=== PATIENT | female | born 1950 ===

== ENCOUNTER 2019-02-09 06:31 | Inpatient (IN) ==
[~2019-02-09 06:31] MED LIST: Bacitracin 50,000 UNIT, Polymyxin B Sulfate 500,000 UNIT, Sodium Chloride IRRigation 1,... IR ONE
[2019-02-09] MEDS ORDERED: *HR* Succinylcholine 200 MG/10 ML VIAL IVP ONE (06:38)
[2019-02-09] MEDS ORDERED: Dexamethasone 4 MG/ML VIAL ONE (06:38)
[2019-02-09] MEDS ORDERED: Lidocaine -MPF 4% 5 ML AMPUL ONE (06:38)
[2019-02-09] MEDS ORDERED: Ondansetron 4 MG/2 ML VIAL ONE ×2 (06:38→11:40)
[2019-02-09] MEDS ORDERED: Lidocaine -MPF 2% 2 ML VIAL ONE (06:38)
[2019-02-09] MEDS ORDERED: *HR* Rocuronium Bromide 50 MG/5 ML VIAL ONE (06:38)
[2019-02-09] MEDS ORDERED: *HR* FentaNYL (PF) 100 MCG/2 ML VIAL ONE (06:39)
[2019-02-09] MEDS ORDERED: *HR* Propofol 200 MG/20 ML VIAL IVP ONE ×2 (06:40)
[2019-02-09] MEDS ORDERED: *HR* Remifentanil 1 MG VIAL IVP ONE ×2 (06:50→10:47)
[2019-02-09] MEDS ORDERED: CeFAZolin Syr 2,000MG/20 ML 2,000 MG/20 ML SYRINGE IVPB ONE (06:52)
[2019-02-09] MEDS ORDERED: Famotidine 20 MG/2 ML VIAL IVP ONE (06:56)
[2019-02-09] MEDS ORDERED: Pregabalin 75 MG CAPSULE PO ONE (06:56)
[2019-02-09] MEDS ORDERED: *HR* Methadone 10 MG TABLET PO ONE (06:57)
[2019-02-09] MEDS ORDERED: Acetaminophen IV 1,000 MG/100 ML INFUS..BTL IVPB ONE (06:57)
[2019-02-09] MEDS ORDERED: Ringers Solution, Lactated 1,000 ML IVC SCH (07:00)
--- NOTE | 2019-02-09 07:03 | Anesthesia Evaluation PreOp ---
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) Other Medical History: GERD Anesthesia History: No Prior Anesthetic Complications Alcohol Use: none Drug use: none Medications and Allergies Azithromycin [Azithromycin 6-Tab Pack] 250 mg PO PER PKG DI #6 tab 12/16/17 [Rx] Guaifenesin/Codeine Phosphate [Guaifen-Codeine 100-10 mg/5 ml] 5 ml PO Q6-8H PRN 10 Days #118 ml 12/16/17 [Rx] predniSONE [PredniSONE] 20 mg PO DAILY #13 tablet 12/16/17 [Rx] Promethazine/Dextromethorphan [Promethazine-Dm Solution] 5 ml PO Q4-6H PRN #120 ml 12/19/17 [Rx] Allergy/AdvReac Type Severity Reaction Status Date / Time No Known Allergies Allergy Verified 02/07/19 11:29 - Meds/Allergy Pre-op Review Medications Reviewed: Yes Allergies Reviewed: Yes Beta Blockers on Current Med List: No Anesthesia Results - Labs Laboratory Tests 02/07/19 02/07/19 11:50 11:50 Hgb 12.2 Hct 35.8 Plt Count 178 Sodium 139 Potassium 3.9 BUN 5 L Creatinine 0.72 - Imaging EKG: report reviewed (Sinus Tach) Anesthesia Exam O2 Sat Height 1.68 m Weight 71.668 kg Height: 5'6 Weight: 158 lbs NPO (# of Hours): MN Pain Scale: 0 - HEENT Pupil (Motor): Pupils equal, EOMI Mallampati: III Denture Type: Upper: Complete Oral Opening: Less than or equal to 3 - CHIEF ENGINEER'S HELPER LOC: Oriented CHIEF ENGINEER'S HELPER Motor: Normal RLE, Normal LLE, Normal Face, Deficit RUE (slight weakness), Deficit LUE CHIEF ENGINEER'S HELPER Sensory: Normal: RUE, LUE, RLE, LLE, Face - Cardiac Rhythm: Regular Murmur: None JVD: No Carotid Bruit: No - Pulmonary Breath Sounds: bilateral Clear Respiratory Effort: Symmetrical Anesthesia Assess/Plan ASA Score: 2 Level of consciousness: Cooperative, Oriented Anesthetic Plan: General Autologous Blood: No Monitoring Plan: Standard Monitors Recovery Plan: PACU (Discussed GA, agrees to proceed)
[2019-02-09] MEDS ORDERED: *HR* Midazolam HCl 2 MG/2 ML VIAL ONE (07:28)
--- NOTE | 2019-02-09 08:09 | History & Physical Report ---
Date of Encounter: 02/09/19 Time of Encounter: 08:08 24 Hour HP Update - Instructions Instructions: If the History and Physical is less than 30 days old and was completed prior to A.M. admission and or procedure and has NOT been updated on calendar day of procedure please complete this update prior to performing procedure. - Update Patient reports changes in Medical Condition: No Changes in examination, assessment, or condition: No Changes in Medication: No Preop tests/diagnostics Reviewed: Yes Pre-Op MRSA Screen: Negative Surgery Remains Indicated: Yes Consent for Planned Operative Procedure(s) Verified: Yes - Pre-Operative Checklist Preoperative Checklist Indicated: No Prophylactic Antibiotic Ordered: Yes Home Medications Include Beta Niki: No Beta Niki Taken Today (Day of Surgery): No Beta Niki Taken Yesterday (Day Prior to Surgery): No Is VTE Prophylaxis Indicated?: Yes
[2019-02-09] MEDS ORDERED: *HR* OxyCODONE Immed Rel 5 MG TABLET PO PRN (08:46)
[2019-02-09] MEDS ORDERED: *HR* HYDROmorphone (PF) 1 MG/ML SYRINGE IVP PRN (08:46)
--- NOTE | 2019-02-09 12:01 | Orthopedic Operative Note ---
Date of procedure: 02/09/19 Pre-op diagnosis: Cervical stenosis, cervical myelopathy, retrolisthesis Post-op diagnosis: same Operation/Findings: Corpectomy C5, anterior cervical fusion C4-C6: The patient was brought to the operating room and placed supine on the operating room table. Successful general endotracheal anesthesia intubation was performed. Neurophysiologic monitoring personnel placed leads on the upper and lower extremities as well as the cranium for EMG monitoring purposes. Appropriate baseline potentials were noted by the neurophysiologic monitoring staff. Blackmon catheter was placed prior to positioning. Compression boots and stockings were placed for deep vein thrombosis prophylaxis. Padding was also placed all bony prominences including the ulnar nerve near the medial epicondyles of the elbows were appropriately padded. Mild traction was placed on the bilateral shoulders and taped into place. Preoperative antibiotics were administered. The area from the mandible bilaterally to the upper thoraces was prepped and draped in the usual sterile f ashion. An oblique incision was made at the level of the cricoid cartilage which is approximately 3 cm in length and extended from the midline of the cervical spine laterally towards the sternocleidomastoid muscle on the left. It was 1 cm medial and parallel to the sternocleidomastoid muscle on the left. We then performed standard medial approach to the carotid sheath. Sponges were used to tease the fascial medial to the sternocleidomastoid muscle while carefully controlling and palpating the carotid artery. Using careful dissection we were able to get to the level of the anterior vertebral bodies and longus coli muscles. The spinal needle was placed at the appropriate C5-6 level, and intraoperative radiograph was obtained which was a cervical spine lateral radiograph. The needle and radiograph confirmed we were at the correct C5-6 operative level. We further exposed this level by using Bovie cautery under the medial edge of the longus colli muscles to allow them to be retracted approximately 2 mm laterally on each side. An 11 blade was used to perform anterior discectomy at the appropriate C5-6 level after an initial annulotomy of the anterior longitudinal ligament and annulus was performed. Further disc material was removed with pituitary Rongeurs. Subsequently, Synthes pins were placed at the C5 and C6 vertebral bodies respectively to provide distraction. We then used a Trimline cervical retractor which was placed in both medial and lateral as well as inferior superior direction to allow full visualization of the appropriate C5-6 disc and C5 and C6 vertebral bodies. The Leica microscope was brought to the field and the remainder of the procedure was performed under the guidance of this microscope. Using pituitary rongeurs and small curettes, various micro-instruments, a full discectomy was performed at the appropriate C5-6 level. The posterior longitudinal ligament was encountered and appeared partially calcified. A portion of this ligament was removed. After complete and thorough discectomy and removal of spondylitic material was performed the superior endplate of C6 vertebral body were prepared with a bur until allow bleeding of cancellous bone. We then turned our attention to the C4-5 level where a similar series of procedures was performed including discectomy, removal of spondylitic material, end plate preparation of the inferior endplate of C4.. The area at C4-5 and C5-5-6 was now decompressed. We turned our attention to removing C5 vertebral body bone from the corpectomy portion of the procedure. This anterior corpectomy was performed at C5 using rongeurs and pituitary instruments. We decompressed all the way back to the posterior longitudinal ligament and part of this ligament was removed. Bone obtained from this p rocedure was saved in a separate sterile container for later use. At the end of the corpectomy, the air from the anterior portion of C4 to the superior endplate of C6 was fully decompressed back to the spinal cord and posterior longitudinal ligament. We measured the intervening space between the inferior portion of C4 and the superior portion of C6 with calipers. We selected the appropriate size expandable cage and packed this with bone. We then carefully placed the cage and bone within the intervening space between C4 and C6. When found to be in appropriate position the oxygen equipment aide was removed. The placement was done under direct visualization and with the aid of fluorography. A 40 mm cervical plate was then placed on the anterior aspect of the C4, C5, and C6 vertebral bodies. The plate was placed in the midline position after drilling four 13 mm self tapping screws and inserting them. They were locked in place using standard Venture plate maneuvers. At this point a lateral radiograph of the cervical spine was obtained and showed satisfactory position of the cage, graft, and plate. The wound was copiously irrigated and bleeders encountered were cauterized using Bovie cautery. Platysma was closed with interrupted 2-0 Vicryl sutures. Running 3-0 Monocryl suture was used for skin closure. Sterile dressing was placed over the neck wound. A cervical collar was placed. The patient was transferred to a hospital bed and extubated. The patient was noted to be fully motor and sensory intact in the recovery room at the end of the procedure. The medications. All sponge instrument and needle counts were correct at the end of the procedure. Anesthesia: GETA Surgeon: Luis Miguel Valadez Jr Was there an education assistant present: No Estimated blood loss (cc): 50 Specimen: None Condition: stable Disposition: PACU
--- NOTE | 2019-02-09 13:35 | Anesthesia Evaluation Post Op ---
Date of Encounter: 02/09/19 Time of Encounter: 13:34 - Vital Signs Vital Signs: Selected Entries 02/09/19 13:26 Temperature 97.8 F Pulse Rate 63 Respiratory Rate 12 Blood Pressure 128/78 O2 Sat by Pulse Oximetry 95 - Lungs Lungs: Clear Ascult./Percussion - Airway Airway: Non-obstructed - Cardiovascular Regular Rate - Mental Status Mental Status: Alert & Oriented, Answers Appropriately - Pain Pain Scale: 0 Pain Scale used: Numeric (1 - 10) - Nausea Vomiting Nausea Vomiting: Not Present - Hydration Hydration: Tolerates oral liquids, Has not voided - Discharge PostOp Status: Transfer Patient to floor
[2019-02-09] MEDS ORDERED: *HR* HYDROcodone/Acet 5/325 mg TABLET PO PRN (13:46)
[2019-02-09] MEDS ORDERED: Acetaminophen 325 MG TABLET PO PRN (13:46)
[2019-02-09] MEDS ORDERED: Naloxone 0.4 MG/ML INJ IVP PRN (13:46)
[2019-02-09] MEDS: *HR* OxyCODONE Immed Rel 5 MG TABLET PO PRN ×2 (15:46→20:28)
[2019-02-09] MEDS: Ringers Solution, Lactated 1,000 ML IVC SCH (18:14)
[2019-02-09] MEDS: Ondansetron 4 MG/2 ML VIAL IVP PRN (20:27)
[2019-02-09] MEDS: Melatonin 3 MG TABLET PO SCH (20:28)
[2019-02-09] MEDS: traZODone 50 MG TABLET PO SCH (20:28)
[2019-02-10] MEDS: *HR* OxyCODONE Immed Rel 5 MG TABLET PO PRN ×2 (01:46→16:37)
[2019-02-10] MEDS: Ondansetron 4 MG/2 ML VIAL IVP PRN (04:41)
--- NOTE | 2019-02-10 08:53 | Discharge Summary ---
- NOTES TO OUTPATIENT PROVIDER Notes to Outpatient Provider: Patient developed postop swelling about the neck. Failed MBS x 2. PEG placed with tube feed titration. Encourage close follow up. Repeat MBS ordered to eval swallowing. Orders not resulted at time of discharge: Pending orders 02/10/19 08:01 XR cervical spine 3V [XR] Routine Date of Encounter: 02/16/19 Time of Encounter: 12:15 - Discharge Diagnosis (1) Cervical spinal stenosis Priority: Primary Status: Chronic (2) Retrolisthesis Priority: Primary Status: Chronic (3) Cervical myelopathy Priority: Primary Status: Chronic (4) Status post cervical spinal fusion Priority: Primary Status: Acute (5) Aspiration into airway Priority: Secondary Status: Acute Qualifiers: Encounter type: initial encounter Qualified Code(s): T17.908A - Unspecified foreign body in respiratory tract, part unspecified causing other injury, initial encounter (6) On tube feeding diet Priority: Secondary Status: Acute (7) Status post insertion of percutaneous endoscopic gastrostomy (PEG) tube Priority: Secondary Status: Acute - Hospital Course Hospital course: Ms. Duncan is a 68 year old female Date of procedure: 02/09/19 Pre-op diagnosis: Cervical stenosis, cervical myelopathy, retrolisthesis Post-op diagnosis: same Operation/Findings: Corpectomy C5, anterior cervical fusion C4-C6 Patient developed acute inability to swallow postop day #1 MBS failed x 2 PEG placed on 02/14 Tube feeds started and titrated up to nutrition goal Patient discharging with PEG and tube feeds as directed by nutrition with strict NPO orders Patient to follow up with Dr. Valadez end of this week Patient to have repeat MBS next Thursday stat 02/21 Dr. Valadez aware of patient status during admission Postoperative films reviewed with satisfactory hardware position Titrated from IV to enteral pain medication with patient tolerating well. Patient discharged home with home health and infusion services - Time Spent with Patient Total time spent providing and/or coordinating discharge services: - Discharge Medications Prescriptions: New Lansoprazole [Prevacid] 30 mg GTUBE DAILY 30 Days #30 capsule.[address] Malhotra Immed Rel [Roxicodone 5 MG] 5 mg PO Q6HR PRN 5 Days #20 tablet PRN Reason: Severe Pain Docusate [Colace] 100 mg GTUBE BID 7 Days #140 mls Lactose-Reduced Food/Fiber [Jevity 1.5 Celso Liquid] 1 can PO QID #48 can Continue Quetiapine Fumarate [Seroquel] 25 mg PO DAILY PARoxetine HCl [Paroxetine HCl] 20 mg PO DAILY Melatonin 5 mg PO HS Atorvastatin [Lipitor] 40 mg PO HS Donepezil [Aricept] 5 mg PO HS Cyclobenzaprine [Flexeril] 10 mg PO TID PRN PRN Reason: Muscle Spasm Trazodone HCl 100 mg PO HS Discontinued Pantoprazole Sodium [Protonix] 40 mg PO DAILY Home Medications: Atorvastatin [Lipitor] 40 mg PO HS 02/09/19 [History] Cyclobenzaprine [Flexeril] 10 mg PO TID PRN 02/09/19 [History] Donepezil [Aricept] 5 mg PO HS 02/09/19 [History] Melatonin 5 mg PO HS 02/09/19 [History] PARoxetine HCl [Paroxetine HCl] 20 mg PO DAILY 02/09/19 [History] Quetiapine Fumarate [Seroquel] 25 mg PO DAILY 02/09/19 [History] Trazodone HCl 100 mg PO HS 02/09/19 [History] Docusate [Colace] 100 mg GTUBE BID 7 Days #140 mls 02/16/19 [Rx] Lactose-Reduced Food/Fiber [Jevity 1.5 Celso Liquid] 1 can PO QID #48 can 02/16/19 [Rx] Lansoprazole [Prevacid] 30 mg GTUBE DAILY 30 Days #30 capsule. 02/16/19 [Rx] OxyCODONE Immed Rel [Roxicodone 5 MG] 5 mg PO Q6HR PRN 5 Days #20 tablet 02/16/19 [Rx] Allergies/Adverse Reactions: Allergy/AdvReac Type Severity Reaction Status Date / Time No Known Allergies Allergy Verified 02/09/19 07:21 Date of admission: 02/09/19 13:37 Primary care physician: Dakota Ayoub MD Consults: 02/09/19 13:46 Consult to Occupational Therapy [CONS] Routine Comment: Evaluate, develop and implement POC Reason for Consult: Postoperative rehabilitation Does patient have active BEDREST order?: No Is patient medically & hemodynamically stable?: Yes Patient assessed for mobility or mobilized this visit?: No Consult to Physical Therapy [CONS] Routine Comment: Evaluate, develop and implement POC Reason for Consult: Postoperative rehabilitation Does patient have active BEDREST order?: No Is patient medically & hemodynamically stable?: Yes Patient assessed for mobility or mobilized this visit?: No Consult to Spine Navigator [CONS] [CONS] Routine 02/09/19 16:34 Consult to Masticator [CONS] Routine Reason for SW Consult: financial concerns, lack of resources at home, dental issues Discharging clinician: Luis Miguel Valadez Jr Anticipated date of discharge: 02/16/19 - VTE Documentation of Mechanical Device: Graduated compression elastic hosiery - Impressions ITS Impressions Cervical Spine X-Ray 02/09/19 08:45 IMPRESSION: Fluoroscopy was utilized for the purposes of cervical fusion. D/ / 02/09/2019 12:23:10 Tom Myrick MD / david Interpreting Provider: Tom Myrick MD Fluoroscopy 02/09/19 08:45 IMPRESSION: Fluoroscopy was utilized for the purposes of cervical fusion. D/ / 02/09/2019 12:23:10 Tom Myrick MD / david Interpreting Provider: Tom Myrick MD - Patient Status Disposition: Home Health Service Condition: Fair Functional capacity at discharge: uses cane/walker Overall status at discharge: patient is progressing back to baseline - Discharge Instructions Follow Up With: Marylin Ledesma PAC [Physician [employer]] - 02/22/19 1:15 pm Luis Miguel Valadez Jr, MD [Partnered Physician] - 05/12/19 11:45 am Dakota Ayoub MD [Primary Care Provider] - - Diet and Activity Activity: as per physical therapy Diet: other (PEG tube feeds as per nutrition orders)
[2019-02-10] MEDS: *HR* Promethazine 25 MG/ML VIAL IVP PRN (09:08)
--- NOTE | 2019-02-10 13:39 | Orthopedics Progress Note ---
Date of Encounter: 02/10/19 Time of Encounter: 08:45 - Assessment and Plan (1) Cervical spinal stenosis Current Visit: Yes Status: Chronic (2) Retrolisthesis Current Visit: Yes Status: Chronic (3) Cervical myelopathy Current Visit: Yes Status: Chronic (4) Status post cervical spinal fusion Current Visit: Yes Status: Acute Subjective Principal diagnosis: s/p cervical fusion Interval history: Date of procedure: 02/09/19 Pre-op diagnosis: Cervical stenosis, cervical myelopathy, retrolisthesis Post-op diagnosis: same Operation/Findings: Corpectomy C5, anterior cervical fusion C4-C6 The patient is c/o difficulty with swallowing. Vitals reviewed. Dressing is clean dry and intact. C collar in room. Neurovascularly intact with regard to bilateral upper and lower extremities. Fires all upper and lower extremity motor groups. Assessment :stable postop Plan mobilize ,continue analgesics, discharge planning - monitor swallowing, if worsening, will order MBS. Objective Vital signs: Vital Signs Temp Pulse Resp BP Pulse Ox 02/10/19 12:40 98.1 F 58 18 124/67 02/10/19 08:15 97.5 F L 67 132/77 02/10/19 06:57 97.9 F 63 15 129/76 97 02/10/19 04:25 97.7 F 63 17 118/73 96 02/09/19 22:50 97.6 F 53 17 122/80 97 02/09/19 21:24 98.5 F 67 126/75 97 02/09/19 18:46 97.9 F 73 16 108/67 95 02/09/19 16:45 97.5 F L 60 14 127/79 94 02/09/19 16:01 97.5 F L 68 16 123/70 95 02/09/19 15:35 97.5 F L 72 16 123/70 96 02/09/19 14:53 97.9 F 89 15 121/73 96 02/09/19 14:16 97.6 F 74 15 132/75 93 02/09/19 13:47 97.5 F L 75 16 146/79 94 Intake and Output 02/09/19 02/10/19 02/10/19 23:59 07:59 15:59 Intake Total 700 / 700 300 / 300 200 / 200 Output Total 1974 800 / 800 Balance -1275 / -1275 -500 / -500 200 / 200 Intake: IV Fluids 100 / 100 Ancef 2,000 MG In 0.9 % Sodium 100 / 100 Chloride 100 ML @ 200 mls/hr IVPB Q8HR SHAILA Rx#:[id number] Oral 600 / 600 300 / 300 200 / 200 Output: Catheter 1974 800 / 800 Other: Meal Dinner Breakfast Percent of Meal Consumed 100% 5% Weight 71.7 kg Patient Weight 02/10/19 23:59 Weight 71.7 kg - Labs CBC & BMP: 02/11/19 18:00 Consult Discharge Plan - Plan Referrals: Anitra,Dakota Valencia MD [Primary Care Provider] - Prescriptions: RX: OxyCODONE Immed Rel [Roxicodone 5 MG] 5 mg PO Q6HR PRN 5 Days #20 tablet PRN Reason: Severe Pain RX: Docusate Sodium [Colace] 100 mg PO BID 5 Days #10 capsule
[2019-02-10] MEDS ORDERED: E-Z-HD (BARIUM SULF) SUSPENSION PO ONE (15:51)
[2019-02-10] MEDS ORDERED: E-Z-PAQUE (BARIUM SULF) SUSP 1 BOTTLE PO ONE (15:51)
[2019-02-10] MEDS: Melatonin 3 MG TABLET PO SCH (20:27)
[2019-02-10] MEDS: traZODone 50 MG TABLET PO SCH (20:27)
[2019-02-11] MEDS: *HR* OxyCODONE Immed Rel 5 MG TABLET PO PRN (04:36)
[2019-02-11] MEDS: OXYCODONE Oral CONC 10 MG/0.5 ML ORAL.SYG SL PRN (13:01)
[2019-02-11] MEDS: D5% in 0.45% NACL 1,000 ML IVC SCH (13:01)
[2019-02-11] MEDS ORDERED: *HR* LORazepam Oral Conc 2 MG/ML SL PRN (14:40)
--- NOTE | 2019-02-11 17:34 | Orthopedics Progress Note ---
Addendum entered and electronically signed by NITESH Keane 02/11/19 17:37: Late entry from 1500 s/w speech therapy re: MBS and reeval from this morning - patient recommended to be NPO except ice chips and no meds PO. Oxycodone changed to SL version. S/w pharmacy re: alternate routes for maintenance meds - orders placed for alternate admin. Patient c/o worsening cough this afternoon - chest xray and cervical xray ordered. Aspiration noted - will consider starting prophylactic abx for aspiration pneumonia since confirmed presence in the lung. Patient's situation discussed at length with Dr. Valadez Original Note: Date of Encounter: 02/11/19 Time of Encounter: 08:30 - Assessment and Plan (1) Cervical spinal stenosis Current Visit: Yes Status: Chronic (2) Retrolisthesis Current Visit: Yes Status: Chronic (3) Cervical myelopathy Current Visit: Yes Status: Chronic (4) Status post cervical spinal fusion Current Visit: Yes Status: Acute Subjective Principal diagnosis: s/p cervical fusion Interval history: Date of procedure: 02/09/19 Pre-op diagnosis: Cervical stenosis, cervical myelopathy, retrolisthesis Post-op diagnosis: same Operation/Findings: Corpectomy C5, anterior cervical fusion C4-C6 The patient is c/o difficulty swallowing. Vital signs reviewed. Dressing is clean dry and intact. Swelling noted to neck. Brace in place. Steri strips in place. Neurovascularly intact with regard to bilateral lower extremities. Fires all upper and lower extremity motor groups. Assessment : + [facility] [place] Speech therapy report reviewed. Plan mobilize ,continue analgesics, discharge planning - awaiting further d iscussion with speech therapy Objective Vital signs: Vital Signs Temp Pulse Resp BP Pulse Ox 02/11/19 15:21 99.5 F 70 16 125/71 92 02/11/19 11:43 99.0 F 73 16 115/69 93 02/11/19 06:28 99.3 F 75 15 131/73 92 02/11/19 04:18 98.8 F 75 15 135/72 93 02/10/19 23:02 99.0 F 73 15 106/66 92 02/10/19 18:49 98.2 F 60 17 146/79 97 Intake and Output 02/11/19 02/11/19 02/11/19 07:59 15:59 23:59 Other: # Voids 1 1 Weight 71.8 kg Patient Weight 02/11/19 23:59 Weight 71.8 kg Consult Discharge Plan - Plan Referrals: Dakota Ayoub MD [Primary Care Provider] - Prescriptions: OxyCODONE Immed Rel [Roxicodone 5 MG] 5 mg PO Q6HR PRN 5 Days #20 tablet PRN Reason: Severe Pain Docusate Sodium [Colace] 100 mg PO BID 5 Days #10 capsule
[2019-02-11 18:07] LABS: Basophils % 0.3 %; Eosinophils # 0.1 K/mcL (0.0-0.6); Eosinophils % 1.7 %; Hematocrit 30.5 % (35.3-44.9); Immature Granulocytes % 0.3 % (0-4); Lymphocytes # 1.7 K/mcL (0.6-4.6); Lymphocytes % 26.6 %; Mean Corpuscular HGB Conc 34.1 g/dL (31.6-35.5); Mean Corpuscular Hemoglobin 28.6 pg (28.0-33.3); Mean Corpuscular Volume 83.8 fL (83.0-100.0); Mean Platelet Volume 10.5 fL (9.4-12.4); Monocytes # 0.5 K/mcL (0.0-1.3); Monocytes % 6.9 %; Neutrophils # 4.2 K/mcL (1.6-8.9); Platelet Count 158 K/mcL (140-400); Red Blood Count 3.64 M/mcL (3.82-4.97); Red Cell Distribution Width 13.2 % (11.5-14.5); Segmented Neutrophils % 64.2 %
[2019-02-11 18:08] LABS: Hemoglobin 10.4 g/dL (11.5-15.4)
[2019-02-11 18:24] LABS: BUN/Creatinine Ratio 9 (6-26); Blood Urea Nitrogen 5 mg/dL (8-23); Calcium 8.5 mg/dL (8.6-10.3); Carbon Dioxide 32 mEq/L (23-29); Chloride 91 mEq/L (98-107); Glucose 128 mg/dL (70-105); Osmolality,Calculated 265 (280-300); Potassium 3.4 mEq/L (3.5-5.1); Sodium 128 mEq/L (136-145); eGFR For Non-African Americans > 60 (> 60)
[2019-02-11] MEDS: traZODone 50 MG TABLET PO SCH (19:01)
[2019-02-11] MEDS: Melatonin 3 MG TABLET PO SCH (19:01)
[2019-02-12] MEDS: Ringers Solution, Lactated 1,000 ML IVC SCH ×4 (00:53→23:44)
[2019-02-12] MEDS: D5% in 0.45% NACL 1,000 ML IVC SCH ×2 (03:40→17:16)
[2019-02-12] MEDS: OXYCODONE Oral CONC 10 MG/0.5 ML ORAL.SYG SL PRN ×2 (03:41→16:50)
[2019-02-12] MEDS: Ondansetron 4 MG/2 ML VIAL IVP PRN (07:55)
[2019-02-12] MEDS: Melatonin 3 MG TABLET PO SCH (23:44)
[2019-02-12] MEDS: traZODone 50 MG TABLET PO SCH (23:44)
[2019-02-13] MEDS: OXYCODONE Oral CONC 10 MG/0.5 ML ORAL.SYG SL PRN ×2 (04:04→15:20)
[2019-02-13] MEDS: D5% in 0.45% NACL 1,000 ML IVC SCH ×2 (07:39→21:03)
[2019-02-13] MEDS: Melatonin 3 MG TABLET PO SCH (20:30)
[2019-02-13] MEDS: traZODone 50 MG TABLET PO SCH (20:30)
--- NOTE | 2019-02-13 23:09 | Spine Progress Note ---
Date of Encounter: 02/12/19 Time of Encounter: 09:00 Subjective Principal diagnosis: s/p cervical fusion Interval history: Patient was some difficulty swallowing. Has some mild swelling. She has swallow evaluation and they have suggested to make the patient nothing by mouth for now. She has no upper extremity complaints. She has some neck soreness. Afebrile vital signs stable. She is neurovascularly intact with regard to bilateral upper extremities. Objective Vital signs: Vital Signs Temp Pulse Resp BP Pulse Ox 02/13/19 22:45 98.5 F 70 17 135/81 97 02/13/19 16:58 98.9 F 76 17 140/99 97 02/13/19 12:08 98.7 F 76 16 137/80 94 02/13/19 07:38 98.8 F 86 16 127/72 93 02/13/19 03:24 98.6 F 82 14 126/79 97 Intake and Output 02/13/19 02/13/19 02/13/19 07:59 15:59 23:59 Intake Total 0 / 0 0 / 0 1000 / 1000 Output Total 0 / 0 Balance 0 / 0 0 / 0 1000 / 1000 Intake: IV Fluids 1000 / 1000 D5% And 0.45% Nacl 1000 Ml Bag 1000 / 1000 1,000 ML @ 75 mls/hr IVC . [id number] SHAILA Rx#:[id number] Oral 0 / 0 0 / 0 Output: Urine 0 / 0 Other: Meal NPO # Voids 1 Weight 73.9 kg Blood Glucose* 121 120 Patient Weight 02/13/19 23:59 Weight 73.9 kg - Labs CBC & BMP: 02/11/19 18:00 02/11/19 18:00 Labs: Abnormal lab results RBC 3.64 M/mcL (3.82-4.97) L 02/11/19 18:00 Hgb 10.4 g/dL (11.5-15.4) L D 02/11/19 18:00 Hct 30.5 % (35.3-44.9) L 02/11/19 18:00 Sodium 128 mEq/L (136-145) L 02/11/19 18:00 Potassium 3.4 mEq/L (3.5-5.1) L 02/11/19 18:00 Chloride 91 mEq/L (98-107) L 02/11/19 18:00 Carbon Dioxide 32 mEq/L (23-29) H 02/11/19 18:00 BUN 5 mg/dL (8-23) L 02/11/19 18:00 Creatinine 0.57 mg/dL (0.60-1.20) L 02/11/19 18:00 Glucose 128 mg/dL (70-105) H 02/11/19 18:00 POC Glucose 120 mg/dL (70-99) H 02/13/19 11:50 Calculated Osmolality 265 (280-300) L 02/11/19 18:00 Calcium 8.5 mg/dL (8.6-10.3) L 02/11/19 18:00 Consult Discharge Plan - Plan Referrals: Dakota Ayoub MD [Primary Care Provider] - Prescriptions: OxyCODONE Immed Rel [Roxicodone 5 MG] 5 mg PO Q6HR PRN 5 Days #20 tablet PRN Reason: Severe Pain Docusate Sodium [Colace] 100 mg PO BID 5 Days #10 capsule
--- NOTE | 2019-02-13 23:10 | Spine Progress Note ---
Date of Encounter: 02/13/19 Time of Encounter: 23:09 Subjective Principal diagnosis: s/p cervical fusion Interval history: Patient was some difficulty swallowing. She is currently nothing by mouth. She states swelling in neck has improved. We plan repeat swallow evaluation tomorrow. She has no upper extremity complaints. She has some neck soreness. Afebrile vital signs stable. She is neurovascularly intact with regard to bilateral upper extremities. She has a well approximated incision with mild soft tissue swelling anterior and neck. Objective Vital signs: Vital Signs Temp Pulse Resp BP Pulse Ox 02/13/19 22:45 98.5 F 70 17 135/81 97 02/13/19 16:58 98.9 F 76 17 140/99 97 02/13/19 12:08 98.7 F 76 16 137/80 94 02/13/19 07:38 98.8 F 86 16 127/72 93 02/13/19 03:24 98.6 F 82 14 126/79 97 Intake and Output 02/13/19 02/13/19 02/13/19 07:59 15:59 23:59 Intake Total 0 / 0 0 / 0 1000 / 1000 Output Total 0 / 0 Balance 0 / 0 0 / 0 1000 / 1000 Intake: IV Fluids 1000 / 1000 D5% And 0.45% Nacl 1000 Ml Bag 1000 / 1000 1,000 ML @ 75 mls/hr IVC . [id number] SHAILA Rx#:[id number] Oral 0 / 0 0 / 0 Output: Urine 0 / 0 Other: Meal NPO # Voids 1 Weight 73.9 kg Blood Glucose* 121 120 Patient Weight 02/13/19 23:59 Weight 73.9 kg - Labs CBC & BMP: 02/11/19 18:00 02/11/19 18:00 Labs: Abnormal lab results RBC 3.64 M/mcL (3.82-4.97) L 02/11/19 18:00 Hgb 10.4 g/dL (11.5-15.4) L D 02/11/19 18:00 Hct 30.5 % (35.3-44.9) L 02/11/19 18:00 Sodium 128 mEq/L (136-145) L 02/11/19 18:00 Potassium 3.4 mEq/L (3.5-5.1) L 02/11/19 18:00 Chloride 91 mEq/L (98-107) L 02/11/19 18:00 Carbon Dioxide 32 mEq/L (23-29) H 02/11/19 18:00 BUN 5 mg/dL (8-23) L 02/11/19 18:00 Creatinine 0.57 mg/dL (0.60-1.20) L 02/11/19 18:00 Glucose 128 mg/dL (70-105) H 02/11/19 18:00 POC Glucose 120 mg/dL (70-99) H 02/13/19 11:50 Calculated Osmolality 265 (280-300) L 02/11/19 18:00 Calcium 8.5 mg/dL (8.6-10.3) L 02/11/19 18:00 Consult Discharge Plan - Plan Referrals: Dakota Ayoub MD [Primary Care Provider] - Prescriptions: OxyCODONE Immed Rel [Roxicodone 5 MG] 5 mg PO Q6HR PRN 5 Days #20 tablet PRN Reason: Severe Pain Docusate Sodium [Colace] 100 mg PO BID 5 Days #10 capsule
[2019-02-14] MEDS: OXYCODONE Oral CONC 10 MG/0.5 ML ORAL.SYG SL PRN (00:49)
[2019-02-14] MEDS ORDERED: E-Z-PAQUE (BARIUM SULF) SUSP 1 BOTTLE PO ONE (08:23)
[2019-02-14] MEDS ORDERED: E-Z-HD (BARIUM SULF) SUSPENSION PO ONE (08:23)
--- NOTE | 2019-02-14 10:57 | AcuteCare Surgery Consult Note ---
Date of Encounter: 02/14/19 Time of Encounter: 10:50 Assessment and Plan (1) Aspiration into airway Current Visit: Yes Status: Acute The patient is experiencing aspiration with swallowing liquids. This is resulting in choking and coughing as well as inadequate fluid and nutritional intake to maintain hydration and nutritional status. Percutaneous endoscopic gastrostomy tube is recommended Qualifiers: Encounter type: initial encounter Qualified Code(s): T17.908A - Unspecified foreign body in respiratory tract, part unspecified causing other injury, initial encounter History of Present Illness Consult date: 02/14/19 Reason for consult: other (Dysphagia) History of present illness: The patient recently underwent anterior cervical fusion with plate. During the postoperative period she developed progressive dysphagia. The deal esophagram demonstrated delayed swallowing as well as upper esophageal sphincter spasm and aspiration. The patient has not been able to swallow adequate fluids to m aintain hydration or nutrition she now presents for percutaneous endoscopic gastrostomy tube. I discussed risks and benefits of percutaneous endoscopic gastrostomy tube. She understands this and wished to proceed. We will place the percutaneous endoscopic gastrostomy tube later today. It is noted that she has previously had Coleman fundoplication performed at [facility]. Past Med Surg Social Fam HX - Past Medical History Medical history: GERD, hyperlipidemia Additional medical history: cervical stenosis of spinal canal. cervical myelopathy. cervical radiculopathy Psychiatric history: anxiety, depression - Past Surgical History Surgical History: orthopedic, other, other (Laparoscopic hiatal hernia repair and Coleman fundoplication) Additional surgical history: neck surgery, - Social History Smoking Status: Never smoker Smokeless Tobacco Status: No Alcohol use: none Drug use: none - Family History Mother Hx Family Cardiac Disorders: Yes Medications and Allergies Atorvastatin [Lipitor] 40 mg PO HS 02/09/19 [History] Cyclobenzaprine [Flexeril] 10 mg PO TID PRN 02/09/19 [History] Donepezil [Aricept] 5 mg PO HS 02/09/19 [History] Melatonin 5 mg PO HS 02/09/19 [History] PARoxetine HCl [Paroxetine HCl] 20 mg PO DAILY 02/09/19 [History] Pantoprazole Sodium [Protonix] 40 mg PO DAILY 02/09/19 [History] Quetiapine Fumarate [Seroquel] 25 mg PO DAILY 02/09/19 [History] Trazodone HCl 100 mg PO HS 02/09/19 [History] Docusate Sodium [Colace] 100 mg PO BID 5 Days #10 capsule 02/11/19 [Rx] OxyCODONE Immed Rel [Roxicodone 5 MG] 5 mg PO Q6HR PRN 5 Days #20 tablet 02/11/19 [Rx] Allergy/AdvReac Type Severity Reaction Status Date / Time No Known Allergies Allergy Verified 02/09/19 07:21 Review of Systems All systems PM: The remainder of the systems were reviewed and are negative General Surgery Exam Initial Vital Signs Temp Pulse Resp BP Pulse Ox 98.0 F 66 18 122/71 95 02/09/19 07:08 02/09/19 07:08 02/09/19 07:08 02/09/19 07:08 02/09/19 07:08 - General physical appearance well developed, well nourished, no distress - Neck other (The patient has a fresh surgical incision on the anterior aspect of the left neck. She is in a neck brace.) - Respiratory normal expansion, normal respiratory effort, clear to percussion, clear to auscultation - Cardiovascular Cardiovascular exam: Present: RRR, no murmurs/rubs/gallops - Abdomen Abdomen general surgery: Present: bowel sounds present, soft, non tender - Integumentary Integumentary general surgery: Present: warm and dry, no abnormal pigmentation - Neurologic Present: CN 2-12 grossly intact, normal coordination, normal sensation - Psychiatric Psychiatric general surgery: Present: appropriate, oriented to person, oriented to place, oriented to time, speech is normal, memory intact Exam Initial Vital Signs Temp Pulse Resp BP Pulse Ox 98.0 F 66 18 122/71 95 02/09/19 07:08 02/09/19 07:08 02/09/19 07:08 02/09/19 07:08 02/09/19 07:08 Results - Labs 02/11/19 18:00 02/11/19 18:00 Abnormal lab results RBC 3.64 M/mcL (3.82-4.97) L 02/11/19 18:00 Hgb 10.4 g/dL (11.5-15.4) L D 02/11/19 18:00 Hct 30.5 % (35.3-44.9) L 02/11/19 18:00 Sodium 128 mEq/L (136-145) L 02/11/19 18:00 Potassium 3.4 mEq/L (3.5-5.1) L 02/11/19 18:00 Chloride 91 mEq/L (98-107) L 02/11/19 18:00 Carbon Dioxide 32 mEq/L (23-29) H 02/11/19 18:00 BUN 5 mg/dL (8-23) L 02/11/19 18:00 Creatinine 0.57 mg/dL (0.60-1.20) L 02/11/19 18:00 Glucose 128 mg/dL (70-105) H 02/11/19 18:00 POC Glucose 124 mg/dL (70-99) H 02/14/19 06:29 Calculated Osmolality 265 (280-300) L 02/11/19 18:00 Calcium 8.5 mg/dL (8.6-10.3) L 02/11/19 18:00 All other labs normal. - Imaging Additional studies: I personally reviewed the video esophagram. There is evidence of aspiration. There appears to be spasm of the upper esophageal sphincter. Consult Discharge Plan - Plan Referrals: Dakota Ayoub MD [Primary Care Provider] - Prescriptions: OxyCODONE Immed Rel [Roxicodone 5 MG] 5 mg PO Q6HR PRN 5 Days #20 tablet PRN Reason: Severe Pain Docusate Sodium [Colace] 100 mg PO BID 5 Days #10 capsule
[2019-02-14] MEDS: Ondansetron 4 MG/2 ML VIAL IVP PRN (11:09)
[2019-02-14] MEDS: *HR* Promethazine 25 MG/ML VIAL IVP PRN (14:57)
[2019-02-14] MEDS: D5% in 0.45% NACL 1,000 ML IVC SCH (15:00)
[2019-02-14] MEDS ORDERED: CeFAZolin Syr 2,000MG/20 ML 2,000 MG/20 ML SYRINGE IVPB ONE ×2 (16:49→17:20)
[2019-02-14] MEDS ORDERED: Propofol 500 MG/50 ML INFUS..BTL ONE (16:58)
[2019-02-14] MEDS ORDERED: *HR* FentaNYL (PF) 100 MCG/2 ML VIAL ONE (16:58)
[2019-02-14] MEDS ORDERED: Lidocaine -MPF 2% 2 ML VIAL ONE (17:03)
--- NOTE | 2019-02-14 17:15 | Anesthesia Evaluation PreOp ---
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, Swallowing problems post ACFD) Other Medical History: Denies Any Significant HX Anesthesia History: No Prior Anesthetic Complications : No Alcohol Use: none Drug use: none Medications and Allergies Atorvastatin [Lipitor] 40 mg PO HS 02/09/19 [History] Cyclobenzaprine [Flexeril] 10 mg PO TID PRN 02/09/19 [History] Donepezil [Aricept] 5 mg PO HS 02/09/19 [History] Melatonin 5 mg PO HS 02/09/19 [History] PARoxetine HCl [Paroxetine HCl] 20 mg PO DAILY 02/09/19 [History] Pantoprazole Sodium [Protonix] 40 mg PO DAILY 02/09/19 [History] Quetiapine Fumarate [Seroquel] 25 mg PO DAILY 02/09/19 [History] Trazodone HCl 100 mg PO HS 02/09/19 [History] Docusate Sodium [Colace] 100 mg PO BID 5 Days #10 capsule 02/11/19 [Rx] OxyCODONE Immed Rel [Roxicodone 5 MG] 5 mg PO Q6HR PRN 5 Days #20 tablet 02/11/19 [Rx] Allergy/AdvReac Type Severity Reaction Status Date / Time No Known Allergies Allergy Verified 02/09/19 07:21 - Meds/Allergy Pre-op Review Medications Reviewed: Yes Allergies Reviewed: Yes Beta Blockers on Current Med List: No Anesthesia Results - Labs 02/11/19 18:00 02/11/19 18:00 - Imaging EKG: report reviewed (ST) Anesthesia Exam Vital Signs/O2 Sat/Glucose, Most Current Temp Pulse Resp BP Pulse Ox 02/14/19 16:31 98.5 F 76 14 145/85 98 Height: 5'6 Weight: 162 lbs NPO (# of Hours): MN Pain Scale: 0 - HEENT Pupil (Motor): Pupils equal, EOMI Mallampati: III Teeth: Edentulous Oral Opening: Less than or equal to 3 - AUTOMATION AND CONTROLS SUPERVISOR LOC: Oriented AUTOMATION [employer] CONTROLS SUPERVISOR Motor: Normal RUE, Normal LUE, Normal RLE, Normal LLE, Deficit Face (swallowing difficulty post op) AUT[employer]ATION [employer] SUPERVISOR Sensory: Normal: RUE, LUE, RLE, LLE, Face - Cardiac Rhythm: Regular Murmur: None JVD: No Carotid Bruit: No - Pulmonary Breath Sounds: bilateral Clear Respiratory Effort: Symmetrical Anesthesia Assess/Plan ASA Score: 2 Level of consciousness: Cooperative, Oriented Anesthetic Plan: MAC Autologous Blood: No Monitoring Plan: Standard Monitors Recovery Plan: PACU (Discussed MAC, possible GA, agrees to proceed)
--- NOTE | 2019-02-14 17:45 | Operative Note ---
Date of procedure: 02/14/19 Pre-op diagnosis: Dysphagia and aspiration Post-op diagnosis: same Implants: Percutaneous endoscopic gastrostomy tube placement Anesthesia: MAC Surgeon: Gato Lloyd Was there an marketing administrative assistant present: No Estimated blood loss (cc): 5 Specimen: None Condition: stable Disposition: PACU Procedure in Detail: The documentation of the PEG tube placement is made in the Provation SystemAfter informed consent the patient was taken to the major operating suite placed in supine position given adequate monitored anesthesia care. Timeout was taken patient was identified. Upper endoscopy was performed. The patient's Coleman fundoplication intact. PEG tube was placed under transillumination and palpation guidance. Documentation in the endoscopy note. The patient tolerated the procedure well Gato Lloyd MD FACS
[2019-02-14] MEDS ORDERED: Ondansetron 4 MG/2 ML VIAL IVP PRN (19:01)
[2019-02-14] MEDS ORDERED: *HR* LORazepam Oral Conc 2 MG/ML SL PRN (19:01)
[2019-02-14] MEDS ORDERED: OXYCODONE Oral CONC 10 MG/0.5 ML ORAL.SYG SL PRN (19:01)
[2019-02-14] MEDS ORDERED: Acetaminophen 325 MG TABLET PO PRN (19:01)
[2019-02-14] MEDS ORDERED: *HR* HYDROcodone/Acet 5/325 mg TABLET PO PRN (19:01)
[2019-02-14] MEDS ORDERED: Naloxone 0.4 MG/ML INJ IVP PRN (19:01)
[2019-02-14] MEDS ORDERED: Ringers Solution, Lactated 1,000 ML IVC SCH (19:01)
[2019-02-14] MEDS ORDERED: *HR* Promethazine 25 MG/ML VIAL IVP PRN (19:01)
[2019-02-14] MEDS: Melatonin 3 MG TABLET PO SCH (21:59)
[2019-02-14] MEDS: traZODone 50 MG TABLET PO SCH (21:59)
[2019-02-15] MEDS: D5% in 0.45% NACL 1,000 ML IVC SCH ×2 (05:12→18:34)
--- NOTE | 2019-02-15 08:39 | Orthopedics Progress Note ---
Date of Encounter: 02/14/19 Time of Encounter: 12:00 - Assessment and Plan (1) Cervical spinal stenosis Current Visit: Yes Status: Chronic (2) Retrolisthesis Current Visit: Yes Status: Chronic (3) Cervical myelopathy Current Visit: Yes Status: Chronic (4) Status post cervical spinal fusion Current Visit: Yes Status: Acute (5) Aspiration into airway Current Visit: Yes Status: Acute Qualifiers: Encounter type: initial encounter Qualified Code(s): T17.908A - Unspecified foreign body in respiratory tract, part unspecified causing other injury, initial encounter Subjective Principal diagnosis: s/p cervical fusion Interval history: Date of procedure: 02/09/19 Pre-op diagnosis: Cervical stenosis, cervical myelopathy, retrolisthesis Post-op diagnosis: same Operation/Findings: Corpectomy C5, anterior cervical fusion C4-C6 The patient is c/o continued difficulty with swallowing. Repeat MBS and speech eval demonstrates continued aspiration. Need for alternate nutrition route recommended. Dr. Valadez made aware of patient's status. Consult to General Surgery and Nutrition placed for PEG eval and placement and Tube feeds. Vitals reviewed. Dressing is clean dry and intact. C collar in room. Neurovascularly intact with regard to bilateral upper and lower extremities. Fires all upper and lower extremity motor groups. Assessment :stable postop - swelling appears to be mildly improved to neck. Failed MBS Plan mobilize ,continue analgesics as needed Awaiting PEG placement today and establishment of tube feeds. Discharge planning - on hold until set up home health with nutrition services for tube feed - likely tomorrow 02/15. Objective Vital signs: Vital Signs Temp Pulse Resp BP Pulse Ox 02/15/19 06:58 98.9 F 74 15 147/81 96 02/15/19 00:25 98.6 F 77 17 131/78 95 02/14/19 18:39 99.0 F 68 16 142/80 90 02/14/19 18:07 98.7 F 78 14 144/77 95 02/14/19 17:16 78 16 146/85 100 02/14/19 16:31 98.5 F 76 14 145/85 98 02/14/19 12:22 98.1 F 72 15 146/84 96 Intake and Output 02/14/19 02/15/19 02/15/19 23:59 07:59 15:59 Other: # Voids 1 1 Weight 72.8 kg Blood Glucose* 99 119 Patient Weight 02/15/19 23:59 Weight 72.8 kg - Labs CBC & BMP: 02/11/19 18:00 02/11/19 18:00 Labs: Abnormal lab results RBC 3.64 M/mcL (3.82-4.97) L 02/11/19 18:00 Hgb 10.4 g/dL (11.5-15.4) L D 02/11/19 18:00 Hct 30.5 % (35.3-44.9) L 02/11/19 18:00 Sodium 128 mEq/L (136-145) L 02/11/19 18:00 Potassium 3.4 mEq/L (3.5-5.1) L 02/11/19 18:00 Chloride 91 mEq/L (98-107) L 02/11/19 18:00 Carbon Dioxide 32 mEq/L (23-29) H 02/11/19 18:00 BUN 5 mg/dL (8-23) L 02/11/19 18:00 Creatinine 0.57 mg/dL (0.60-1.20) L 02/11/19 18:00 Glucose 128 mg/dL (70-105) H 02/11/19 18:00 POC Glucose 119 mg/dL (70-99) H 02/15/19 06:17 Calculated Osmolality 265 (280-300) L 02/11/19 18:00 Calcium 8.5 mg/dL (8.6-10.3) L 02/11/19 18:00 Consult Discharge Plan - Plan Referrals: Anitra,Dakota Valencia MD [Primary Care Provider] - Prescriptions: OxyCODONE Immed Rel [Roxicodone 5 MG] 5 mg PO Q6HR PRN 5 Days #20 tablet PRN Reason: Severe Pain Docusate Sodium [Colace] 100 mg PO BID 5 Days #10 capsule
--- NOTE | 2019-02-15 10:17 | AcuteCareSurgery Progress Note ---
<Troy Najera - Last Filed: 02/15/19 10:08> Date of Encounter: 02/15/19 Time of Encounter: 10:08 - Assessment and Plan (1) Aspiration into airway Current Visit: Yes Status: Acute This is a 68-year-old female who recently underwent anterior cervical fusion with plate. Patient developed progressive dysphagia postoperatively. She had an esophagram which showed mild pharyngeal weakness and aspiration with cough reflex with thin liquids. - Patient is postoperative day 1 status post PEG tube placement yesterday PLAN: - PEG site looks clean, dry, intact. No evidence of infection. PEG is in place. - No other recommendations at this time. - Surgery will sign off. Please reconsult if necessary. Qualifiers: Encounter type: initial encounter Qualified Code(s): T17.908A - Unspecified foreign body in respiratory tract, part unspecified causing other injury, initial encounter Subjective Patient reports: no new complaints, feels better, pain is less, voiding w/o difficulty, afebrile Narrative: Patient seen and evaluated at bedside this morning. No acute complaints at this time. She is resting comfortably sitting in a chair next to bedside. Patient remains afebrile and hemodynamically stable. PEG tube site intact and in place, with no signs of infection, no drainage, no erythema. Objective Vital Signs - Last 8 Hours Temp Pulse Resp BP Pulse Ox 02/15/19 06:58 98.9 F 74 15 147/81 96 Intake and Output 02/14/19 02/15/19 02/15/19 23:59 07:59 15:59 Other: # Voids 1 1 Weight 72.8 kg Blood Glucose* 99 119 Patient Weight 02/15/19 23:59 Weight 72.8 kg - General physical appearance well developed, well nourished, no distress, no pain - Eyes normal ocular movement - ENT atraumatic, normocephalic - Neck Neck exam: trachea midline - Respiratory normal expansion, normal respiratory effort, clear to auscultation - Cardiovascular Cardiovascular exam: Present: RRR, regular rhythm, no murmurs/rubs/gallops - Abdomen Abdomen: Present: bowel sounds present, soft, non tender - Incision Incision: Present: clean and dry, intact - Integumentary no rash, no abnormal pigmentation - Psychiatric oriented to time, oriented to person, oriented to place, speech is normal, memory intact - Labs 02/11/19 18:00 02/11/19 18:00 Consult Discharge Plan - Plan Referrals: Dakota Ayoub MD [Primary Care Provider] - Prescriptions: RX: OxyCODONE Immed Rel [Roxicodone 5 MG] 5 mg PO Q6HR PRN 5 Days #20 tablet PRN Reason: Severe Pain RX: Docusate Sodium [Colace] 100 mg PO BID 5 Days #10 capsule <Nancy Brooks - Last Filed: 02/15/19 11:38> Date of Encounter: 02/15/19 Objective Vital Signs - Last 8 Hours Temp Pulse Resp BP Pulse Ox 02/15/19 06:58 98.9 F 74 15 147/81 96 Intake and Output 02/14/19 02/15/19 02/15/19 23:59 07:59 15:59 Other: # Voids 1 1 Weight 72.8 kg Blood Glucose* 99 119 132 Patient Weight 02/15/19 23:59 Weight 72.8 kg - Labs 02/11/19 18:00 02/11/19 18:00 - Attending Attestation I examined this patient and my medical decision-making was reviewed with the Resident Physician. I agree with the documented findings, disposition and treatment plan as described except to the extent set forth below.
--- NOTE | 2019-02-15 12:38 | Discharge Summary ---
Date of Encounter: 02/16/19 - Discharge Diagnosis (1) Cervical spinal stenosis Status: Chronic (2) Retrolisthesis Status: Chronic (3) Cervical myelopathy Status: Chronic (4) Status post cervical spinal fusion Status: Acute (5) Aspiration into airway Status: Acute Qualifiers: Encounter type: initial encounter Qualified Code(s): T17.908A - Unspecified foreign body in respiratory tract, part unspecified causing other injury, initial encounter - Hospital Course Hospital course: Ms. Duncan is a 68 year old female Date of procedure: 02/09/19 Pre-op diagnosis: Cervical stenosis, cervical myelopathy, retrolisthesis Post-op diagnosis: same Operation/Findings: Corpectomy C5, anterior cervical fusion C4-C6 - Time Spent with Patient Total time spent providing and/or coordinating discharge services: - Discharge Medications Prescriptions: Continue Quetiapine Fumarate [Seroquel] 25 mg PO DAILY PARoxetine HCl [Paroxetine HCl] 20 mg PO DAILY Pantoprazole Sodium [Protonix] 40 mg PO DAILY Melatonin 5 mg PO HS Atorvastatin [Lipitor] 40 mg PO HS Donepezil [Aricept] 5 mg PO HS Cyclobenzaprine [Flexeril] 10 mg PO TID PRN PRN Reason: Muscle Spasm Trazodone HCl 100 mg PO HS Home Medications: Atorvastatin [Lipitor] 40 mg PO HS 02/09/19 [History] Cyclobenzaprine [Flexeril] 10 mg PO TID PRN 02/09/19 [History] Donepezil [Aricept] 5 mg PO HS 02/09/19 [History] Melatonin 5 mg PO HS 02/09/19 [History] PARoxetine HCl [Paroxetine HCl] 20 mg PO DAILY 02/09/19 [History] Pantoprazole Sodium [Protonix] 40 mg PO DAILY 02/09/19 [History] Quetiapine Fumarate [Seroquel] 25 mg PO DAILY 02/09/19 [History] Trazodone HCl 100 mg PO HS 02/09/19 [History] Allergies/Adverse Reactions: Allergy/AdvReac Type Severity Reaction Status Date / Time No Known Allergies Allergy Verified 02/09/19 07:21 Date of admission: 02/09/19 13:37 Primary care physician: Dakota Ayoub MD Consults: 02/09/19 13:46 Consult to Occupational Therapy [CONS] Routine Comment: Evaluate, develop and implement POC Reason for Consult: Postoperative rehabilitation Does patient have active BEDREST order?: No Is patient medically & hemodynamically stable?: Yes Patient assessed for mobility or mobilized this visit?: No Consult to Physical Therapy [CONS] Routine Comment: Evaluate, develop and implement POC Reason for Consult: Postoperative rehabilitation Does patient have active BEDREST order?: No Is patient medically & hemodynamically stable?: Yes Patient assessed for mobility or mobilized this visit?: No Consult to Spine Navigator [CONS] [CONS] Routine 02/09/19 16:34 Consult to Detail Maker And Fitter [CONS] Routine Reason for SW Consult: financial concerns, lack of resources at home, dental issues Need set up tube feeds at home - PEG placed 02/1402/11/19 11:13 Consult to Speech Therapy [CONS] Routine Comment: Evaluate, develop and implement POC Reason for Consult: Eval and bedside swallow eval for aspiration precautions, barium swallow evaluation Call Completed: No 02/14/19 11:41 Consult to Surgery [CONS] Routine Consulting Provider: [facility] Reason for Consult: Peg placement Call Completed: Yes 02/15/19 09:00 Consult to Nutrition [CONS] Routine Comment: Consulting Provider: NUTRITION Reason for Dietary Consult: Tube Feed Start & Manage Labs on day of discharge: Labs from last 24 hours 02/15/19 02/15/19 02/15/19 11:13 06:17 02:02 POC Glucose 132 H 119 H 118 H 02/13/19 19:19 POC Glucose 111 H - Impressions ITS Impressions Cervical Spine X-Ray 02/09/19 08:45 IMPRESSION: Fluoroscopy was utilized for the purposes of cervical fusion. D/ / 02/09/2019 12:23:10 Tom Myrick MD / david Interpreting Provider: Tom Myrick MD Fluoroscopy 02/09/19 08:45 IMPRESSION: Fluoroscopy was utilized for the purposes of cervical fusion. D/ / 02/09/2019 12:23:10 Tom Myrick MD / david Interpreting Provider: Tom Myrick MD Cervical Spine X-Ray 02/10/19 08:01 IMPRESSION: Uncomplicated anterior fusion from C4 through C6 with C5 corpectomy. Posterior cervical fusion at C1-C2. D/ / 02/10/2019 10:58:29 Tom Myrick MD / Cheryl Saldana Interpreting Provider: Tom Myrick MD Videofluoroscopic Swallow 02/10/19 12:08 IMPRESSION: Laryngeal penetration with thin liquids. Silent aspiration with thin liquids predominately due to residual in the piriform sinuses trickling along the posterior trachea. Prominent cricopharyngeal bar versus postsurgical edema at the C6-C7 level. Please see separate speech pathology report for full discussion of findings and recommendations. D/ / Luiz Beckwith MD / Luiz Beckwith MD Interpreting Provider: Luiz Beckwith MD Chest X-Ray 02/11/19 13:14 IMPRESSION: No acute pulmonary abnormality. Trace amount of contrast overlying the trachea associated with recent aspiration during modified barium swallow. D/ / Danilo Mendoza MD / Danilo Mendoza MD Interpreting Provider: Danilo Mendoza MD Cervical Spine X-Ray 02/11/19 13:16 IMPRESSION: Mild further increase in the pre-spinal soft tissue swelling since yesterday. Mild narrowing of the airway. Otherwise no change in the appearance of the cervical spine. D/ / Fitz Kirkland MD / Fitz Kirkland MD Interpreting Provider: Fitz Kirkland MD Videofluoroscopic Swallow 02/14/19 07:30 IMPRESSION: 1. Mild pharyngeal weakness. 2. Nonspecific cricopharyngeal prominence with nonrelaxation. 3. Aspiration with cough reflex with thin liquids. Please see separate speech pathology report for full discussion of findings and recommendations. D/ / 02/14/2019 09:24:21 Haris Schneider MD / Cheryl Saldana Interpreting Provider: Haris Schneider MD - Discharge Instructions Follow Up With: Marylin Ledesma PAC [Physician Clip Wrapper] - 02/22/19 1:15 pm Luis Miguel Valadez Jr, MD [Partnered Physician] - 05/12/19 11:45 am Dakota Ayoub MD [Primary Care Provider] -
[2019-02-15] MEDS: traZODone 50 MG TABLET PO SCH (21:14)
[2019-02-15] MEDS: Melatonin 3 MG TABLET PO SCH (21:14)
[2019-02-16] MEDS: D5% in 0.45% NACL 1,000 ML IVC SCH ×2 (07:33→21:35)
[2019-02-16 08:34] LABS: Hematocrit 33.9 % (35.3-44.9); Hemoglobin 11.4 g/dL (11.5-15.4)
[2019-02-16 08:47] LABS: BUN/Creatinine Ratio 13 (6-26); Blood Urea Nitrogen 7 mg/dL (8-23); Calcium 9.3 mg/dL (8.6-10.3); Carbon Dioxide 27 mEq/L (23-29); Chloride 102 mEq/L (98-107); Glucose 122 mg/dL (70-105); Osmolality,Calculated 287 (280-300); Potassium 3.5 mEq/L (3.5-5.1); Sodium 139 mEq/L (136-145); eGFR For Non-African Americans > 60 (> 60)
--- NOTE | 2019-02-16 10:22 | Orthopedics Progress Note ---
Date of Encounter: 02/15/19 Time of Encounter: 13:15 - Assessment and Plan (1) Cervical spinal stenosis Current Visit: Yes Status: Chronic (2) Retrolisthesis Current Visit: Yes Status: Chronic (3) Cervical myelopathy Current Visit: Yes Status: Chronic (4) Status post cervical spinal fusion Current Visit: Yes Status: Acute (5) Aspiration into airway Current Visit: Yes Status: Acute Qualifiers: Encounter type: initial encounter Qualified Code(s): T17.908A - Unspecified foreign body in respiratory tract, part unspecified causing other injury, initial encounter (6) Status post insertion of percutaneous endoscopic gastrostomy (PEG) tube Current Visit: Yes Status: Acute (7) On tube feeding diet Current Visit: Yes Status: Acute Subjective Principal diagnosis: s/p cervical fusion Interval history: Date of procedure: 02/09/19 Pre-op diagnosis: Cervical stenosis, cervical myelopathy, retrolisthesis Post-op diagnosis: same Operation/Findings: Corpectomy C5, anterior cervical fusion C4-C6 The patient is s/p PEG placement and start of tube feeds - patient now titrating up on Jevity as per protocol with goal of 45 ml/hr. Free water flushes 200 ml Q6H Vitals reviewed. Dressing is clean dry and intact. C collar in room. Neurovascularly intact with regard to bilateral upper and lower extremities. Fires all upper and lower extremity motor groups. Assessment :stable postop - swelling appears to be mildly improved to neck. Failed MBS - see [place] notes Plan mobilize ,continue analgesics as needed Discharge planning - plan for tomorrow, 02/16 to allow establishment of goal tube feed and re-initiation of medications via PEG. Still need home health with nutrition services for tube feed Objective Vital signs: Vital Signs Temp Pulse Resp BP Pulse Ox 02/16/19 06:39 99.3 F 79 18 127/76 96 02/15/19 23:42 97.8 F 82 17 143/74 92 02/15/19 19:30 98.5 F 76 16 138/80 98 02/15/19 15:30 98.4 F 82 14 136/81 99 02/15/19 11:00 98.2 F 69 16 149/77 98 Intake and Output 02/15/19 02/16/19 02/16/19 23:59 07:59 15:59 Intake Total 1450 / 1450 2028 Output Total 200 / 200 Balance 1250 / 1250 2028 Intake: IV Fluids 1000 / 1000 1000 / 1000 D5% And 0.45% Nacl 1000 Ml Bag 1000 / 1000 1000 / 1000 1,000 ML @ 75 mls/hr IVC . [id number] SHAILA Rx#:[id number] Tube Feeding 629 / 629 Free Water Intake Amount 450 / 450 400 / 400 Output: Urine 200 / 200 Other: Stool Size Large Stool Consistency liquid # Voids 1 1 # Bowel Movements 1 Blood Glucose* 129 147 - Labs CBC & BMP: 02/16/19 07:47 02/16/19 07:47 Labs: Abnormal lab results RBC 3.64 M/mcL (3.82-4.97) L 02/11/19 18:00 Hgb 11.4 g/dL (11.5-15.4) L 02/16/19 07:47 Hct 33.9 % (35.3-44.9) L 02/16/19 07:47 BUN 7 mg/dL (8-23) L 02/16/19 07:47 Creatinine 0.54 mg/dL (0.60-1.20) L 02/16/19 07:47 Glucose 122 mg/dL (70-105) H 02/16/19 07:47 POC Glucose 155 mg/dL (70-99) H 02/15/19 22:59 Consult Discharge Plan - Plan Referrals: Marylin Ledesma PAC [Physician Green End Worker] - 02/22/19 1:15 pm Luis Miguel Valadez Jr, MD [Partnered Physician] - 05/12/19 11:45 am Dakota Ayoub MD [Primary Care Provider] -
[2019-02-16] MEDS ORDERED: Melatonin 3 MG TABLET GTUBE SCH (21:30)
[2019-02-17 06:39] VITALS: BP 137/82
[2019-02-17] MEDS ORDERED: traZODone 50 MG TABLET GTUBE SCH (21:00)
== END 2019-02-17 10:13 | disposition home health service (06) | DRG 472 ==
LOC: SAMDAY 06:31 → 3NENU 13:37
PROVIDERS: ADMIT Orthopaedic Surgery Orthopaedic Surgery of the Spine; ATTEND Orthopaedic Surgery Orthopaedic Surgery of the Spine
PROC: SPICORP (2019-02-09 08:15)